=== PATIENT | female | born 1995 ===

== ENCOUNTER 2023-11-05 15:28 | Emergency (ER) | payer MEDICAID, OTHER ==
[~2023-11-05] VITALS: Ht 157.5 cm; Wt 57.8 kg
[2023-11-05 15:43] VITALS: BP 111/61; PULSE 104; RESP 16; O2SAT 98
[2023-11-05 21:32] LABS: Urine Bacteria FEW /hpf (None Seen); Urine Blood Negative /uL (Negative); Urine Clarity Turbid (Clear); Urine Color Yellow (Yellow); Urine Mucus FEW (None Seen); Urine Protein, UAD TRACE (Negative); Urine Urobilinogen Normal (Negative); Urine WBC 18 /hpf (0 - 5)
== END 2023-11-05 20:36 | disposition left against medical advice (07) ==
LOC: ER 15:28
DX: M54.50 Low back pain, unspecified (principal); Z53.21 Procedure and treatment not carried out due to patient leaving prior to being seen by health care provider; W54.0XXA Bitten by dog, initial encounter; Y93.02 Activity, running; Y92.89 Other specified places as the place of occurrence of the external cause; Y99.8 Other external cause status
CPT/HCPCS: 81001